=== PATIENT | female | born 1930 | race Caucasian/White ===

== ENCOUNTER → 2016-12-28 | Outpatient (CLI) | payer OTHER ==
--- NOTE | 2016-12-28 12:40 | US ---
Bilateral Duplex/Doppler Carotid Sonography Clinical Indications: Evaluate carotid plaque; assess for arterial occlusive disease. Technique: The cervical portions of the carotid and vertebral arteries were imaged and interrogated b y color and pulsed Doppler. Spectral analysis was performed. Findings: Right Carotid: The common carotid artery, bifurcation, and origins of the internal and external carot id arteries are well imaged. No plaque formation is seen at the level of the carotid bifurcation. Peak ICA systolic velocity; 68 cm/sec. The internal to common carotid artery ratio is calculated at 1.1. Peak ICA diastolic velocity; 19 cm/sec. There is no evidence of flow-limiting stenosis. Left Carotid: The common carotid artery, bifurcation, and origins of the internal and external carot id arteries are well imaged. Minimal plaque formation is seen at the level of the carotid bifurcation. Peak ICA systolic velocity; 76 cm/sec. The internal to common carotid artery ratio is calculated at 0.9. Peak ICA diastolic velocity; 21 cm/sec. There is no evidence of flow-limiting stenosis. Vertebral Arteries: Antegrade flow is shown by pulsed Duplex/Doppler of each vertebral artery. Impression: Minimal plaque formation at the level of the left carotid bifurcation with no evidence of flow-limiting stenosis. Measurement of carotid stenosis is based on velocity parameters that correlate the residual internal carotid diameter with [place] Symptomatic Carotid Endarterectomy Trial (NASCET) based stenosis levels.
== END ==
LOC: BMCIMAGING 11:23
PROVIDERS: ATTEND Physician Assistant Medical
DX: Z13.6 Encounter for screening for cardiovascular disorders (principal)

== ENCOUNTER → 2017-05-03 | Outpatient (CLI) | payer OTHER | LOC: BMCIMAGING 16:14 | PROVIDERS: ATTEND Physician Assistant Medical | DX: J45.909 Unspecified asthma, uncomplicated (principal); R91.1 Solitary pulmonary nodule; Z85.118 Personal history of other malignant neoplasm of bronchus and lung ==

== ENCOUNTER → 2017-10-18 | Outpatient (CLI) | payer OTHER | LOC: FIMAGING 16:11 | PROVIDERS: ATTEND Physician Assistant Medical | DX: I73.9 Peripheral vascular disease, unspecified (principal); I74.3 Embolism and thrombosis of arteries of the lower extremities ==

== ENCOUNTER → 2018-12-05 | Outpatient (CLI) | payer OTHER | LOC: BMCIMAGING 16:13 | PROVIDERS: ATTEND Physician Assistant Medical | DX: R05 Cough (principal); Z85.118 Personal history of other malignant neoplasm of bronchus and lung ==